=== PATIENT | female | born 1970 | race Caucasian/White ===

== ENCOUNTER 2018-06-08 13:00 | Emergency (ER) | payer OTHER ==
[2018-06-08] MEDS ORDERED: Ondansetron 4 MG/2 ML SDV IVPUSH ONE (13:39)
--- NOTE | 2018-06-08 13:41 | EDM.PDOC ---
ED HPI GENERAL MEDICAL PROBLEM - General Chief Complaint: Lower Extremity Injury/Pain Stated Complaint: KNEE Time Seen by Provider: 06/08/18 13:15 Source of Information: Reports: Patient, EMS History Limitations: Reports: No Limitations - History of Present Illness INITIAL COMMENTS - FREE TEXT/NARRATIVE: 47-year-old female slipped on the ice injuring her right knee. It felt initially like it was "out of joint" but popped back in. This has happened to her in the past. The right knee is now very swollen and painful. She received IV fentanyl in route which has made her nauseous. 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: - Past Surgical History GI Surgical History: Reports: Appendectomy, Cholecystectomy Female Surgical History: Reports: D&C, Hysterectomy Musculoskeletal Surgical History: Reports: Arthroscopic Knee, Arthroscopic Procedure, Other (See Below) Other Musculoskeletal Surgeries/Procedures:: hip surgery, spurs, Social & Family History - Tobacco Use Smoking Status *Q: Never Smoker - Caffeine Use Caffeine Use: Reports: Soda - Recreational Drug Use Recreational Drug Use: No Review of Systems - Review of Systems Review Of Systems: See Below Constitutional: Denies: Fever Respiratory: Denies: Shortness of Breath Cardiovascular: Denies: Chest Pain GI/Abdominal: Denies: Abdominal Pain Musculoskeletal: Reports: Other (Right knee pain, mild right hip pain) Skin: Denies: Bruising ED EXAM, GENERAL - Physical Exam Exam: See Below Exam Limited By: No Limitations General Appearance: Alert, Mild Distress (Fairly uncomfortable) Head: Atraumatic Neck: Supple Respiratory/Chest: No Respiratory Distress GI/Abdominal: Non-Tender Extremities: Other (Mild lateral right hip discomfort with palpation, no significant pain with passive range of motion of the hip. Right knee however has intense pain with any movement, palpation of the medial knee is very tender and she feels to have a moderate effusion. Patella is also tender to palpation.) Course - Vital Signs Last Recorded V/S: Last Vital Signs Temp 97.5 F 06/08/18 13:06 Pulse 71 06/08/18 13:06 Resp 16 06/08/18 13:06 BP 155/47 H 06/08/18 13:06 Pulse Ox 97 06/08/18 13:06 - Orders/Labs/Meds Orders: Active Orders 24 hr Category Date Time Status DME for Discharge [COMM] Stat Oth 06/08/18 14:02 Ordered Meds: Medications Discontinued Medications Generic Name Dose Route Start Last Admin Trade Name Kelley PRN Reason Stop Dose Admin Ondansetron HCl 4 mg 06/08/18 13:39 06/08/18 14:02 Zofran IVPUSH 06/08/18 13:40 4 mg ONETIME ONE Administration - Re-Assessments/Exams Free Text/Narrative Re-Assessment/Exam: 06/08/18 14:19 Knee x-ray was done which showed no fracture. Patient was given 4 mg of Zofran as she developed nausea and vomiting from the fentanyl. A copy of the x-ray was given to the patient and she was placed in a knee immobilizer. She has crutches. She'll recheck with orthopedics early next week at her [facility]. Departure - Departure Time of Disposition: 14:40 Disposition: Home, Self-Care 01 Condition: Good Clinical Impression: Sprain of right knee Qualifiers: Encounter type: initial encounter Involved ligament of knee: medial collateral ligament Qualified Code(s): S83.411A - Sprain of medial collateral ligament of right knee, initial encounter - Discharge Information Instructions: Knee Sprain, Adult, [id number] Referrals: PCP,None [Primary Care Provider] - Forms: ED Department Discharge Care Plan Goals: Wear immobilizer to keep knee still and use crutches for ambulation. Recheck with your primary provider or orthopedic provider in the next several days. Ibuprofen or naproxen for pain and add stronger pain medications if needed. - My Orders Last 24 Hours: My Active Orders 06/08/18 14:02 DME for Discharge [COMM] Stat - Assessment/Plan Last 24 Hours: My Active Orders 06/08/18 14:02 DME for Discharge [COMM] Stat
--- NOTE | 2018-06-08 14:14 | CRLCR ---
INDICATION: Fell. Right knee pain and swelling. TECHNIQUE: Two views of the right knee. COMPARISON: None. FINDINGS: No obvious focal soft tissue swelling. No obvious joint effusion. No fracture or subluxation. 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 Artifact projected over the posterior aspect of the knee joint on the lateral view and medial to the proximal calf on the AP. IMPRESSION: 1. No acute abnormality. 2. 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 Dictated by Jovany Heredia MD @ Jun 08 2018 2:11PM Signed by Dr. Jovany Heredia @ Jun 08 2018 2:14PM
== END 2018-06-08 14:40 | disposition home or self-care (01) ==
LOC: JP.ED 13:00
DX: S83.411A Sprain of medial collateral ligament of right knee, initial encounter (principal); Z88.8 Allergy status to other drugs, medicaments and biological substances; Z88.5 Allergy status to narcotic agent; W00.0XXA Fall on same level due to ice and snow, initial encounter
CPT/HCPCS: 73562; 96374; 99283; J2405